=== PATIENT | male | born 1945 | race Caucasian/White ===

== ENCOUNTER → 2016-06-16 | Outpatient (CLI) | payer MEDICARE, BC ==
[~2016-06-16] MED LIST: CEFAZOLIN 2GM PREMIX 50 ML IV ONE; DIAZEPAM 10 MG TABLET ONE; EPTIFIBATIDE BOLUS 2,000 MCG/ML 10ML VIAL. IV ONE; FENTANYL PF 100 MCG/2 ML VIAL. ONE; HEPARIN 5,000 UNIT/ML VIAL for PCVC ONE; IODIXANOL 270 MG/ML 100 ML VIAL. ONE; IV NORMAL SALINE 1000ML BAG 1,000 ML ONE; IV NORMAL SALINE 500ML BAG 500 ML ONE; LIDOCAINE 1% Multi-Dose 20 ML VIAL. ONE; LIDOCAINE 1%/EPI 1:100,000 20 ML VIAL. ONE; MIDAZOLAM HCL 2 MG/2 ML VIAL. ONE; hydrALAZINE 20 MG/ML VIAL. ONE
== END | disposition home or self-care (01) ==
LOC: PCVCINTER 07:17
PROVIDERS: ATTEND Nuclear Medicine Nuclear Cardiology
DX: I70.213 Atherosclerosis of native arteries of extremities with intermittent claudication, bilateral legs (principal); I70.1 Atherosclerosis of renal artery; I15.0 Renovascular hypertension; I70.0 Atherosclerosis of aorta; I70.92 Chronic total occlusion of artery of the extremities; I25.10 Atherosclerotic heart disease of native coronary artery without angina pectoris; I77.9 Disorder of arteries and arterioles, unspecified; I10 Essential (primary) hypertension; E78.00 Pure hypercholesterolemia, unspecified; N18.9 Chronic kidney disease, unspecified
CPT/HCPCS: 36252; 37186; 37220; 37225; 75716; 76937; C1725; C1751; C1757; C1760; C1769; C1885; C1894; J0690; J1327; J1644; J2250; J3010; J3490; J7030; J7040; J0360

== ENCOUNTER → 2016-07-14 | Outpatient (CLI) | payer MEDICARE, BC | END | disposition home or self-care (01) | LOC: PCVCIMAG 13:57 | PROVIDERS: ATTEND Nuclear Medicine Nuclear Cardiology | DX: I70.213 Atherosclerosis of native arteries of extremities with intermittent claudication, bilateral legs (principal); I25.10 Atherosclerotic heart disease of native coronary artery without angina pectoris; I77.9 Disorder of arteries and arterioles, unspecified; E78.00 Pure hypercholesterolemia, unspecified; N18.9 Chronic kidney disease, unspecified | CPT/HCPCS: 93926; G0463 ==

== ENCOUNTER → 2016-08-28 | Outpatient (CLI) | payer MEDICARE, BC | END | disposition home or self-care (01) | LOC: PCVCIMAG 11:04 | PROVIDERS: ATTEND Nuclear Medicine Nuclear Cardiology | DX: I70.212 Atherosclerosis of native arteries of extremities with intermittent claudication, left leg (principal); I25.10 Atherosclerotic heart disease of native coronary artery without angina pectoris; I25.5 Ischemic cardiomyopathy; I10 Essential (primary) hypertension; E78.00 Pure hypercholesterolemia, unspecified | CPT/HCPCS: 93926; G0463 ==

== ENCOUNTER → 2016-09-03 | Outpatient (CLI) | payer MEDICARE, BC ==
[~2016-09-03] MED LIST changes: -CEFAZOLIN 2GM PREMIX 50 ML IV ONE; -DIAZEPAM 10 MG TABLET ONE; +DIAZEPAM 10 MG TABLET. ONE; -HEPARIN 5,000 UNIT/ML VIAL for PCVC ONE; +HEPARIN SODIUM 5,000 UNIT/ML VIAL. ONE; -LIDOCAINE 1%/EPI 1:100,000 20 ML VIAL. ONE; -MIDAZOLAM HCL 2 MG/2 ML VIAL. ONE; +MIDAZOLAM HCL/PF 2 MG/2 ML VIAL. ONE; -hydrALAZINE 20 MG/ML VIAL. ONE
== END | disposition home or self-care (01) ==
LOC: PCVCINTER 09:10
PROVIDERS: ATTEND Nuclear Medicine Nuclear Cardiology
DX: I70.202 Unspecified atherosclerosis of native arteries of extremities, left leg (principal); I70.0 Atherosclerosis of aorta; I70.1 Atherosclerosis of renal artery; I77.1 Stricture of artery; I87.8 Other specified disorders of veins; I15.0 Renovascular hypertension; T85.858A Stenosis due to other internal prosthetic devices, implants and grafts, initial encounter; Z95.1 Presence of aortocoronary bypass graft; Z98.890 Other specified postprocedural states
CPT/HCPCS: 36252; 37186; 37225; 75716; 76937; C1725; C1751; C1757; C1760; C1769; C1885; C1894; C2623; J0690; J1327; J1644; J2250; J3010; J7030; J7040

== ENCOUNTER → 2017-01-13 | Outpatient (CLI) | payer MEDICARE, BC | END | disposition home or self-care (01) | LOC: PCVCCLINIC 11:03 | PROVIDERS: ATTEND Internal Medicine Cardiovascular Disease | DX: I25.10 Atherosclerotic heart disease of native coronary artery without angina pectoris (principal); I73.9 Peripheral vascular disease, unspecified; I10 Essential (primary) hypertension; E78.00 Pure hypercholesterolemia, unspecified; I65.23 Occlusion and stenosis of bilateral carotid arteries; Z88.8 Allergy status to other drugs, medicaments and biological substances; Z86.718 Personal history of other venous thrombosis and embolism; Z95.810 Presence of automatic (implantable) cardiac defibrillator; Z95.1 Presence of aortocoronary bypass graft; Z87.891 Personal history of nicotine dependence | CPT/HCPCS: 36415; 93005; G0463 ==

== ENCOUNTER → 2017-01-27 | Outpatient (CLI) | payer MEDICARE, BC ==
--- NOTE | 2017-01-27 16:42 | PCVCIMAG ---
EXAM: LEFT LOWER EXTREMITY ARTERIAL DUPLEX INDICATION: Peripheral Arterial Disease. Leg pain. FINDINGS: Left Leg: Satisfactory arterial waveforms in the common femoral profunda femoral artery. Complete occlusion throughout the [place] superficial femoral artery and upper popliteal artery. Post surgical changes of femoral to below-knee popliteal artery bypass. Elevated velocities proximal portion of the graft up to 303 cm/s most compatible with 60-70% stenosis. Mid and distal graft appears patent. Anterior tibial artery and peroneal artery are occluded. Posterior tibial artery is patent. IMPRESSION: 60-70% restenosis proximal left jfsgygn-wbope-ogcm popliteal artery bypass graft. Unchanged occlusion of left anterior tibial artery and peroneal artery and the [place] left superficial femoral artery and upper popliteal artery. LOC:[id number]
== END | disposition home or self-care (01) ==
LOC: PCVCIMAG 14:41
PROVIDERS: ATTEND Internal Medicine
DX: I70.203 Unspecified atherosclerosis of native arteries of extremities, bilateral legs (principal); I77.1 Stricture of artery; I25.10 Atherosclerotic heart disease of native coronary artery without angina pectoris; I77.9 Disorder of arteries and arterioles, unspecified; I12.9 Hypertensive chronic kidney disease with stage 1 through stage 4 chronic kidney disease, or unspecified chronic kidney disease; N18.9 Chronic kidney disease, unspecified; J44.9 Chronic obstructive pulmonary disease, unspecified; E78.00 Pure hypercholesterolemia, unspecified; Z87.891 Personal history of nicotine dependence; Z86.718 Personal history of other venous thrombosis and embolism; Z95.810 Presence of automatic (implantable) cardiac defibrillator; Z79.899 Other long term (current) drug therapy; Z88.8 Allergy status to other drugs, medicaments and biological substances
CPT/HCPCS: 93926; G0463

== ENCOUNTER → 2017-02-04 | Outpatient (CLI) | payer MEDICARE, BC ==
[~2017-02-04] MED LIST changes: -DIAZEPAM 10 MG TABLET. ONE; -EPTIFIBATIDE BOLUS 2,000 MCG/ML 10ML VIAL. IV ONE; -FENTANYL PF 100 MCG/2 ML VIAL. ONE; -HEPARIN SODIUM 5,000 UNIT/ML VIAL. ONE; -IODIXANOL 270 MG/ML 100 ML VIAL. ONE; -IV NORMAL SALINE 1000ML BAG 1,000 ML ONE; -IV NORMAL SALINE 500ML BAG 500 ML ONE; -LIDOCAINE 1% Multi-Dose 20 ML VIAL. ONE; -MIDAZOLAM HCL/PF 2 MG/2 ML VIAL. ONE; +REGADENOSON 0.4 MG/5 ML DISP.SYRIN. IV ONE
--- NOTE | 2017-02-04 14:25 | PCVCIMAG ---
APPROVED REPORT Exam: Nuclear Stress Test Indication: CAD Patient Location: Out-Patient Stress Nurse: Katya Simon RN, Kusum Henderson RN [place] Tech:Brenda Sandovalkarina [employer]ST[employer]ER Ht: 6 ft 2 in Wt: 209 lbs BSA: 2.21 m2 HR: 70 bpm BP: 151/67 mmHg BMI: 26.8 Rhythm: Pacemaker Medical History Medical History: COPD, HTN, CVD, PVD, CAD Medications: Eliquis, Plavix, Metoprolol, Ramipril Allergies: Carvedilol, Hydrocodone Pretest Chest Pain Characteristics: No chest pain Exercise History: Physically active Meds Held (24 hrs): Metoprolol Stress Test Details Stress Test: Pharmacologic stress testing performed using 0.4 mg of regadenoson per 5 mL given IV over 10 seconds. Reason for pharmacologic stress test: physical limitation. HR Resting HR: 70 bpmMax Heart Rate (APMHR): 148 bpm Max HR Achieved: 95 bpmTarget HR (85% APMHR): 125 bpm % of APMHR: 64 Recovery HR: 79 bpm BP Resting BP: 151/67 mmHg Max BP: 142/66 mmHg ECG Resting ECG: Paced Rhythm Stress ECG: Paced Rhythm ST Change: Nondiagnostic V-pacing or LBBB Recovery ECG: Paced Rhythm Clinical Reason for Termination: Completed protocol Stress Symptoms: Dyspnea, Light-headed Exercise duration: 1 min 55 sec Symptoms resolved during recovery. NM EXAM: Myocardial Perfusion REST/STRESS Imaging Protocol: Rest Tc-99m/Stress Tc-99m 1 day Resting Data Rest SPECT myocardial perfusion imaging was performed in supine position 45 minutes following the intravenous injection of 10.8 mCi of Tc-99m Sestamibi. Time of rest injection: 914 Date: 02/04/2017 Administration Route: IV Administration Site: Right AC Pharmacologic Stress Pharmacologic stress test was performed by injecting Regadenoson 0.4 mg IV push followed by the intravenous injection of 34.5 mCi of Tc-99m Sestamibi. Time of stress injection: 0 Date: 02/04/2017 Administration Route: IV Administration Site: Right Arm Gated Stress SPECT was performed 45 minutes after stress injection. The images were gated to evaluate regional wall motion and calculate left ventricular ejection fraction. Study Quality Study: Good Artifact: Moderate Diaphragmatic artifact Study Data Post stress, the left ventricular ejection was 62%.. SSS: 3 SRS: 2 SDS: 1 TID = 0.84. Perfusion There is a medium area of moderately reduced uptake in the basal and mid segment of the inferior wall which is seen on the stress images as well as the resting images. This area thickens and moves normally and is most consistent with attenuation artifact. Wall Motion Normal left ventricular wall motion. Nuclear Conclusion ECG Findings: non-diagnostic Clinical Findings: non-diagnostic Nuclear Findings: negative for ischemia This study is of low probability for inducible ischemia or prior infarct. Normal global and segmental LV systolic function. Artifact: Moderate Diaphragmatic artifact
== END | disposition home or self-care (01) ==
LOC: PCVCIMAG 01-28 09:40
PROVIDERS: ATTEND Internal Medicine Cardiovascular Disease
DX: I25.10 Atherosclerotic heart disease of native coronary artery without angina pectoris (principal); I73.9 Peripheral vascular disease, unspecified; J44.9 Chronic obstructive pulmonary disease, unspecified; I10 Essential (primary) hypertension; I44.2 Atrioventricular block, complete; I65.29 Occlusion and stenosis of unspecified carotid artery; Z88.8 Allergy status to other drugs, medicaments and biological substances; Z79.899 Other long term (current) drug therapy; Z86.718 Personal history of other venous thrombosis and embolism
CPT/HCPCS: 78452; 93017; A9500; G0463; J2785

== ENCOUNTER → 2017-05-01 | Outpatient (CLI) | payer MEDICARE, BC ==
--- NOTE | 2017-05-01 18:14 | PCVCIMAG ---
EXAM: BILATERAL CAROTID DUPLEX INDICATION: Carotid Occlusive Disease. FINDINGS: Doppler Measurements (centimeters per second): RIGHT: Peak CCA-84, Peak ECA-123, Diastolic ICA-12, Peak ICA-107, ICA/CCA Ratio-1.3. LEFT: Peak CCA-89, Peak ECA-76, Diastolic ICA-12, Peak ICA-101, ICA/CCA Ratio-1.1. RIGHT CAROTID: The carotid bulb has moderate plaque. The proximal internal carotid artery shows <40% stenosis. The common carotid artery shows no significant stenosis. The external carotid artery shows no significant stenosis. LEFT CAROTID: The carotid bulb has mild plaque. The proximal internal carotid artery shows <40% stenosis. The common carotid artery shows no significant stenosis. The external carotid artery shows no significant stenosis. Antegrade flow in both vertebral arteries. IMPRESSION: <40% stenosis of the right internal carotid artery with moderate plaque. <40% stenosis of the left internal carotid artery with mild plaque. LOC:OFFICE
--- NOTE | 2017-05-01 18:18 | PCVCIMAG ---
EXAM: LEFT LOWER EXTREMITY ARTERIAL DUPLEX INDICATION: Peripheral Arterial Disease. Leg pain. FINDINGS: Left Leg: Satisfactory arterial waveforms in the common femoral and profunda femoral artery. Occlusion throughout the [place] superficial femoral artery and mid and upper popliteal artery. Postsurgical changes of femoral to below-knee popliteal artery vein bypass graft. Increased systolic velocity near the proximal anastomosis of 622 cm/s consistent with 95% stenosis has worsened significantly since January 2017 study. Occlusion throughout the anterior tibial artery is unchanged. The peroneal artery and posterior tibial artery patent. IMPRESSION: 95% stenosis near the proximal anastomosis of the left femoral-popliteal artery bypass graft. Patient will return next week for further evaluation with conventional angiography. LOC:OFFICE
== END | disposition home or self-care (01) ==
LOC: PCVCIMAG 13:43
PROVIDERS: ATTEND Nuclear Medicine Nuclear Cardiology
DX: I65.23 Occlusion and stenosis of bilateral carotid arteries (principal); I73.9 Peripheral vascular disease, unspecified
CPT/HCPCS: 93880; 93926

== ENCOUNTER → 2017-05-06 | Outpatient (CLI) | payer MEDICARE, BC ==
[~2017-05-06] MED LIST changes: +DIAZEPAM 10 MG TABLET. ONE; +EPTIFIBATIDE BOLUS 2,000 MCG/ML 10ML VIAL. IV ONE; +HEPARIN SODIUM 5,000 UNIT/ML VIAL for PCVC. ONE; +IODIXANOL 270 MG/ML 100 ML VIAL. ONE; +IV NORMAL SALINE 1000ML BAG 1,000 ML ONE; +IV NORMAL SALINE 50ML 50 ML ONE; +LIDOCAINE 1% Multi-Dose 20 ML VIAL. ONE; +MIDAZOLAM HCL/PF 2 MG/2 ML VIAL. ONE; -REGADENOSON 0.4 MG/5 ML DISP.SYRIN. IV ONE; +ceFAZolin SODIUM 1 GM VIAL ONE; +fentaNYL PF VIAL 100 MCG/2 ML VIAL ONE
--- NOTE | 2017-05-06 12:51 | PCVCINTER ---
EXAM: 1. AORTOGRAM AND BILATERAL LOWER EXTREMITY RUNOFF ANGIOGRAM 2. BILATERAL RENAL ANGIOGRAPHY 3. LEFT FEMORAL-POPLITEAL ARTERY BYPASS GRAFT ATHERECTOMY AND STENT PLACEMENT. 4. SECONDARY THROMBECTOMY LEFT FEMORAL-POPLITEAL ARTERY BYPASS GRAFT. 5. DRUG COATED BALLOON ANGIOPLASTY LEFT FEMORAL-POPLITEAL ARTERY BYPASS GRAFT. INDICATION: Peripheral arterial disease. Coronary artery disease. Left foot claudication. Left foot rest pain. Hypertension. Renal atherosclerosis. PROCEDURE: Procedure and risks of angiography intervention is appropriate including limb loss stroke and were discussed with the patient's family and consent obtained. The patient's right groin was prepped abnormal sterile fashion. IV conscious sedation was used throughout procedure with appropriate monitoring from 11:00 AM through 12:15 PM. Ultrasound was used to interrogate the right groin and showed the right common femoral artery to be patent. A permanent spot film was obtained. Under ultrasound guidance access into the right common femoral artery was obtained and a 5 [place] sheath was placed. Through this a 5 [place] flush catheter was placed into the abdominal aorta at the level of the renal arteries and AP aortogram was performed. Catheter was positioned at the aortic bifurcation and both oblique views of the pelvis were obtained. Catheter was positioned into the right external iliac artery and right leg runoff angiography was performed. Catheter was exchanged for a visceral catheter was placed into the right renal arteries and right renal angiograms obtained. Catheter was placed into the the left renal arteries and left renal angiograms were obtained. Catheter was advanced to the level of the left external iliac artery and left leg runoff angiography was obtained. Patient was given 4500 units of heparin. A 6 [place] crossover sheath was placed via the right groin to the level of the left common femoral artery. Atherectomy of the proximal anastomosis of the left femoral-below knee popliteal saphenous vein graft was performed with 0.9 mm [employer] laser atherectomy catheter in the standard fashion. Following atherectomy small areas of thrombus were observed and because of this secondary thrombectomy throughout the proximal anastomosis of the left femoral-below knee popliteal saphenous vein graft was carried out with mechanical suction thrombectomy catheter in the standard fashion. Minimal debris was removed. Following this drug coated balloon angioplasty of the proximal anastomosis of the left femoral-below knee popliteal saphenous vein graft was carried out with a 4 x 4 ufindads Valentina Maycol [employer] catheter. Follow-up angiogram was performed. There was significant elastic recoil causing 70% stenosis at the proximal anastomosis. Stent placement across the areas of high-grade stenosis at the proximal anastomosis of the left femoral-below knee popliteal saphenous vein graft was carried out with a 3.5 x 18 Medtr[employer] integrity stent with subsequent dilatation to 3.9 mm. Catheters and wires removed. Sheath was removed and hemostasis obtained using the FISH device. No immediate complications. FINDINGS: Aortogram: There is one right and one left renal artery. Moderate ulcerated plaque infrarenal abdominal aorta does not cause significant stenosis. Pelvis: Previous right and left common iliac artery stents are maintaining good patency. Previous right external iliac artery stent remains patent. The left external iliac artery remains patent. The right and left common femoral arteries are patent. 99% stenosis at the origin the right profunda femoral artery. The left profunda femoral artery is patent. Right renal artery: Mild plaque proximal vessel does not cause significant stenosis. Left renal artery: Mild plaque proximal vessel does not cause significant stenosis. Right leg: The superficial femoral artery is patent. Eccentric plaque upper popliteal artery results in 50% stenosis. The anterior tibial artery is occluded in its mid and distal portion. The peroneal and posterior tibial arteries show satisfactory patency. Left leg: Occlusion of the [place] mid/distal superficial femoral artery and mid/upper popliteal artery. There is a iidgimp-rnbba-utfq popliteal artery bypass graft. There is 99% stenosis at the proximal anastomosis has been seen previously. Anterior tibial artery is occluded. The tibioperoneal trunk refills with adequate patency. The peroneal artery and posterior tibial artery are patent throughout. Left femoral-popliteal artery saphenous vein bypass graft: Following procedure as above good flow throughout the graft has been restored. There is only mild residual stenosis at the proximal anastomosis at the conclusion of the procedure. IMPRESSION: Recurrent 99% stenosis at the proximal anastomosis of the left femoral-below knee popliteal artery saphenous vein bypass graft was treated as above with satisfactory patency restored. 50% stenosis upper right popliteal artery not felt to be critically flow-limiting. LOC:[id number]
== END | disposition home or self-care (01) ==
LOC: PCVCINTER 09:11
PROVIDERS: ATTEND Nuclear Medicine Nuclear Cardiology
DX: I70.213 Atherosclerosis of native arteries of extremities with intermittent claudication, bilateral legs (principal); I10 Essential (primary) hypertension; I70.1 Atherosclerosis of renal artery
CPT/HCPCS: 36252; 37186; 37227; 75716; 76937; 99152; 99153; C1725; C1751; C1757; C1760; C1769; C1876; C1885; C1894; C2623; J0690; J1327; J1644; J2250; J3010; J7030; Q9966

== ENCOUNTER → 2017-08-14 | Outpatient (CLI) | payer MEDICARE, BC | END | disposition home or self-care (01) | LOC: PCVCIMAG 11:17 | DX: I73.9 Peripheral vascular disease, unspecified (principal); I25.10 Atherosclerotic heart disease of native coronary artery without angina pectoris; I77.9 Disorder of arteries and arterioles, unspecified; J44.9 Chronic obstructive pulmonary disease, unspecified; I12.9 Hypertensive chronic kidney disease with stage 1 through stage 4 chronic kidney disease, or unspecified chronic kidney disease; N18.9 Chronic kidney disease, unspecified; E78.00 Pure hypercholesterolemia, unspecified; Z87.891 Personal history of nicotine dependence; Z79.899 Other long term (current) drug therapy | CPT/HCPCS: 93926; G0463 ==

== ENCOUNTER → 2017-08-19 | Outpatient (CLI) | payer MEDICARE, BC ==
[~2017-08-19] MED LIST changes: +DIAZEPAM 10 MG TABLET.; -DIAZEPAM 10 MG TABLET. ONE; +EPINEPHrine 1 MG/ML VIAL; +EPTIFIBATIDE BOLUS 2,000 MCG/ML 10ML VIAL. IV; -EPTIFIBATIDE BOLUS 2,000 MCG/ML 10ML VIAL. IV ONE; +HEPARIN SODIUM 5,000 UNIT/ML VIAL for PCVC.; -HEPARIN SODIUM 5,000 UNIT/ML VIAL for PCVC. ONE; +IODIXANOL 270 MG/ML 100 ML VIAL.; -IODIXANOL 270 MG/ML 100 ML VIAL. ONE; +IV NORMAL SALINE 1000ML BAG 1,000 ML; -IV NORMAL SALINE 1000ML BAG 1,000 ML ONE; -IV NORMAL SALINE 50ML 50 ML ONE; -LIDOCAINE 1% Multi-Dose 20 ML VIAL. ONE; +LIDOCAINE 1% Multi-Dose 50 ML VIAL.; +MIDAZOLAM HCL/PF 2 MG/2 ML VIAL.; -MIDAZOLAM HCL/PF 2 MG/2 ML VIAL. ONE; +ceFAZolin SODIUM 1 GM VIAL; -ceFAZolin SODIUM 1 GM VIAL ONE; +fentaNYL PF VIAL 100 MCG/2 ML VIAL; -fentaNYL PF VIAL 100 MCG/2 ML VIAL ONE
== END | disposition home or self-care (01) ==
LOC: PCVCINTER 08:34
DX: I70.213 Atherosclerosis of native arteries of extremities with intermittent claudication, bilateral legs (principal); I70.0 Atherosclerosis of aorta; I10 Essential (primary) hypertension
CPT/HCPCS: 36252; 37186; 37225; 75716; 76937; 99152; 99153; C1725; C1751; C1757; C1760; C1769; C1885; C1894; C2623; J0171; J0690; J1327; J1644; J2250; J3010; J7030

== ENCOUNTER → 2018-04-30 | Outpatient (CLI) | payer MEDICARE, BC | END | disposition home or self-care (01) | LOC: PCVCCLINIC 14:41 | PROVIDERS: ATTEND Internal Medicine Cardiovascular Disease | DX: J44.9 Chronic obstructive pulmonary disease, unspecified (principal); I10 Essential (primary) hypertension; I73.9 Peripheral vascular disease, unspecified; E78.00 Pure hypercholesterolemia, unspecified; F17.210 Nicotine dependence, cigarettes, uncomplicated; Z88.8 Allergy status to other drugs, medicaments and biological substances | CPT/HCPCS: 36415; 80061 ==

== ENCOUNTER → 2018-08-13 | Outpatient (CLI) | payer MEDICARE, BC | END | disposition home or self-care (01) | LOC: PCVCCLINIC 14:13 | PROVIDERS: ATTEND Internal Medicine Cardiovascular Disease | DX: I25.10 Atherosclerotic heart disease of native coronary artery without angina pectoris (principal); I10 Essential (primary) hypertension; E78.00 Pure hypercholesterolemia, unspecified; Z95.810 Presence of automatic (implantable) cardiac defibrillator; Z87.891 Personal history of nicotine dependence | CPT/HCPCS: 93005; G0463 ==

== ENCOUNTER → 2018-08-24 | Outpatient (CLI) | payer MEDICARE, BC ==
--- NOTE | 2018-08-24 12:41 | PCVCIMAG ---
EXAM: LEFT LOWER EXTREMITY ARTERIAL DUPLEX INDICATION: Peripheral Arterial Disease. Leg pain. FINDINGS: Left Leg: Common femoral and profunda femoral arteries are patent. Since prior study there is been complete occlusion developed throughout the left yfrbaij-khlzy-qtay popliteal artery vein graft. Unchanged occlusion of the [place] superficial femoral artery and mid/upper popliteal artery within prior stent. Refilling of the distal most popliteal artery/tibioperoneal trunk. Unchanged occlusion of the anterior tibial artery. The left peroneal and posterior tibial arteries remain patent although arterial waveforms are blunted. IMPRESSION: Interval development of occlusion throughout the left xelkucw-bdclj-gxzh popliteal artery saphenous vein graft. Unchanged occlusion of the left superficial femoral artery and popliteal artery and anterior tibial artery. LOC:[id number]
== END | disposition home or self-care (01) ==
LOC: PCVCIMAG 08:00
PROVIDERS: ATTEND Nuclear Medicine Nuclear Cardiology
DX: I73.9 Peripheral vascular disease, unspecified (principal); I25.10 Atherosclerotic heart disease of native coronary artery without angina pectoris; I77.9 Disorder of arteries and arterioles, unspecified; I82.409 Acute embolism and thrombosis of unspecified deep veins of unspecified lower extremity; I12.9 Hypertensive chronic kidney disease with stage 1 through stage 4 chronic kidney disease, or unspecified chronic kidney disease; N18.9 Chronic kidney disease, unspecified; E78.00 Pure hypercholesterolemia, unspecified; J44.9 Chronic obstructive pulmonary disease, unspecified; Z87.891 Personal history of nicotine dependence
CPT/HCPCS: 93926; G0463

== ENCOUNTER → 2019-02-15 | Outpatient (CLI) | payer MEDICARE, BC ==
[~2019-02-15] MED LIST changes: -DIAZEPAM 10 MG TABLET.; -EPINEPHrine 1 MG/ML VIAL; -EPTIFIBATIDE BOLUS 2,000 MCG/ML 10ML VIAL. IV; -HEPARIN SODIUM 5,000 UNIT/ML VIAL for PCVC.; -IODIXANOL 270 MG/ML 100 ML VIAL.; -IV NORMAL SALINE 1000ML BAG 1,000 ML; -LIDOCAINE 1% Multi-Dose 50 ML VIAL.; -MIDAZOLAM HCL/PF 2 MG/2 ML VIAL.; +REGADENOSON 0.4 MG/5 ML DISP.SYRIN. IV ONE; -ceFAZolin SODIUM 1 GM VIAL; -fentaNYL PF VIAL 100 MCG/2 ML VIAL
--- NOTE | 2019-02-15 09:15 | PCVCIMAG ---
EXAM: BILATERAL CAROTID DUPLEX INDICATION: Carotid Occlusive Disease. FINDINGS: Doppler Measurements (centimeters per second): RIGHT: Peak CCA-81, Peak ECA-47, Diastolic ICA-14, Peak ICA-118, ICA/CCA Ratio-1.5. LEFT: Peak CCA-98, Peak ECA-108, Diastolic ICA-16, Peak ICA-103, ICA/CCA Ratio-1.0. RIGHT CAROTID: The carotid bulb has moderate plaque. The proximal internal carotid artery shows <40% stenosis. The common carotid artery shows no significant stenosis. The external carotid artery shows no significant stenosis. LEFT CAROTID: The carotid bulb has mild plaque. The proximal internal carotid artery shows <40% stenosis. The common carotid artery shows no significant stenosis. The external carotid artery shows no significant stenosis. Antegrade flow in both vertebral arteries. IMPRESSION: <40% stenosis of the right internal carotid artery with moderate plaque. <40% stenosis of the left internal carotid artery with mild plaque. No change since April 2017. LOC:[id number]
--- NOTE | 2019-02-15 12:45 | PCVCIMAG ---
APPROVED REPORT Imaging Protocol: Rest Tc-99m/Stress Tc-99m 1 day Study performed: 02/15/2019 09:00:13 Indication: CAD, ICM, CKD Patient Location: Out-Patient Stress Nurse: Kusum Henderson RN [place] Tech:Brenda SandovalHERACLIO collinsMT Ht: 6 ft 4 in Wt: 230 lbs BSA: 2.35 m2 HR: 62 bpm BP: 184/75 mmHg BMI: 27.99 Rhythm: V-Paced Medical History Medical History: Age, CABG, HTN, PVD, COPD, CAD, Pacemaker Medications: Eliquis, Plavix, Metoprolol, Livalo, Ramipril Allergies: Multiple - none r/t test Exercise History: Physically active Physical Disabilities: Gait disturbance Meds Held (24 hrs): Metoprolol Resting Data Rest SPECT myocardial perfusion imaging was performed in supine position 45 minutes following the intravenous injection of 10.3 mCi of Time of rest injection: 09 Date: 02/15/2019 Administration Route: IV Administration Site: Right AC Pharmacologic Stress Pharmacologic stress test was performed by injecting Regadenoson 0.4 mg IV push over 10-15 seconds immediately followed by the intravenous injection of 35.2 mCi of Tc-99m Sestamibi. Time of stress injection: 1030 Date: 02/15/2019 Administration Route: IV Administration Site: Right AC Gated Stress SPECT was performed 45 minutes after stress injection. The images were gated to evaluate regional wall motion and calculate left ventricular ejection fraction. Stress Test Details Stress Test: Pharmacologic stress testing performed using 0.4 mg of regadenoson per 5 mL given IV over 10 seconds. Reason for pharmacologic stress test: PPM. HRMax Heart Rate (APMHR): 146 bpm Resting HR: 62 bpmTarget HR (85% APMHR): 124 bpm Max HR Achieved: 78 bpm % of APMHR: 53 Recovery HR: 68 bpm BP Resting BP: 184/75 mmHg Max BP: 148/68 mmHg Recovery BP: 133/66 mmHg ECG Resting ECG: Ventricular paced rhythm Stress ECG: Ventricular paced rhythm ST Change: Nondiagnostic V-pacing Arrhythmia: APC's Recovery ECG: Ventricular paced rhythm Clinical Reason for Termination: Completed protocol Stress Symptoms: Warm Symptoms resolved during recovery. Study Quality Study: Good Artifact: Moderate Diaphragmatic artifact Study Data Post stress, the left ventricular ejection was 58%.. SSS: 5 SRS: 4 SDS: 1 TID = 0.88. Perfusion There is a medium area of moderately reduced uptake in the basal and mid segment of the inferior wall which is seen on the stress images as well as the resting images. This area thickens and moves normally and is most consistent with attenuation artifact. Wall Motion Normal left ventricular wall motion. Nuclear Conclusion ECG Findings: non-diagnostic Clinical Findings: non-diagnostic Nuclear Findings: negative for ischemia Exercise Capacity: not assessed Left Ventricular Function: normal This study is of low probability for inducible ischemia or prior infarct. Normal global and segmental LV systolic function. Artifact: Moderate Diaphragmatic artifact
== END | disposition home or self-care (01) ==
LOC: PCVCIMAG 08:53
PROVIDERS: ATTEND Nuclear Medicine Nuclear Cardiology
DX: I65.23 Occlusion and stenosis of bilateral carotid arteries (principal); I25.10 Atherosclerotic heart disease of native coronary artery without angina pectoris; I25.5 Ischemic cardiomyopathy; I10 Essential (primary) hypertension; Z95.810 Presence of automatic (implantable) cardiac defibrillator; Z87.891 Personal history of nicotine dependence; Z79.899 Other long term (current) drug therapy; Z88.8 Allergy status to other drugs, medicaments and biological substances
CPT/HCPCS: 78452; 93017; 93880; A9500; G0463; J2785